=== PATIENT | female | born 2000 | race Caucasian/White ===

== ENCOUNTER 2022-09-06 11:34 | Outpatient (CLI) | payer BC ==
[~2022-09-06] VITALS: Ht 66 cm; Wt 74.9 kg
[2022-09-06 11:50] VITALS: BP 118/64
[2022-09-06 11:59] VITALS: BP 118/64
[2022-09-06 12:14] LABS: BILIRUBIN,URINE NEGATIVE (NEGATIVE); CLARITY,URINE SL CLOUDY; COLOR,URINE YELLOW; GLUCOSE, URINE (UA) NEGATIVE (NEGATIVE); KETONES,URINE 2+ (NEGATIVE); LEUKOCYTE ESTERASE ,URINE NEGATIVE (NEGATIVE); NITRITE,URINE NEGATIVE (NEGATIVE); PROTEIN,URINE TRACE (NEGATIVE)
[2022-09-06 12:21] LABS: BACTERIA,URINE TRACE /HPF
[2022-09-06] MEDS ORDERED: LACTATED RINGERS 1,000 ML IV SCH ×2 (12:30→13:30)
[2022-09-06] MEDS ORDERED: ONDANSETRON 4 MG/2 ML (SDV) Z0FRAN IVP ONE (12:30)
[2022-09-06 13:28] LABS: BASOPHILS % (AUTO) 0 % (0-10); EOSINOPHILS % (AUTO) 0 % (0-10); HEMATOCRIT 34 % (35-52); HEMOGLOBIN 11.7 g/dL (11.5-16.0); LYMPHOCYTES % (AUTO) 7 % (12-44); MEAN CORPUSCULAR HEMOGLOBIN 32 pg (25-34); MEAN CORPUSCULAR HGB CONC 34 g/dL (32-36); MEAN CORPUSCULAR VOLUME 93 fL (80-99); MEAN PLATELET VOLUME 10.4 fL (9.0-12.2); MONOCYTES # (AUTO) 0.5 10^3/uL (0.0-1.0); MONOCYTES % (AUTO) 4 % (0-12); NEUTROPHILS # (AUTO) 12.6 10^3/uL (1.8-7.8); NEUTROPHILS % (AUTO) 89 % (42-75); PLATELET COUNT 244 10^3/uL (130-400); WHITE BLOOD COUNT 14.2 10^3/uL (4.3-11.0)
[2022-09-06 13:36] LABS: ALBUMIN 3.6 GM/DL (3.2-4.5)
[2022-09-06 13:38] LABS: CALCIUM 8.9 MG/DL (8.5-10.1)
[2022-09-06 13:39] LABS: TOTAL PROTEIN 6.8 GM/DL (6.4-8.2)
[2022-09-06 13:40] VITALS: BP 118/68
[2022-09-06 13:41] LABS: BILIRUBIN,TOTAL 0.4 MG/DL (0.1-1.0)
[2022-09-06 13:42] LABS: CREATININE SERUM 0.62 MG/DL (0.60-1.30)
[2022-09-06 13:46] LABS: BAND NEUTROPHILS 1 %; LYMPHOCYTES % (MANUAL) 5 %; MONOCYTES % (MANUAL) 1 %; NEUTROPHILS % (MANUAL) 93 %
[2022-09-06 13:47] LABS: RBC MORPH NORMAL
[2022-09-06 14:35] VITALS: BP 118/68
--- NOTE | 2022-09-07 08:09 | Physician Query-Final Dx ---
JUNG,09/07/22 0809: Clinic Account Progress/Dx Physician Query: Please give diagnosis Please include # weeks gestation Date of Service Sep 06, 2022 at 11:34 ANNETTE ANTUNEZ MD 09/07/22 0825: Clinic Account Progress/Dx DIAGNOSIS: Diagnosis False labor at 35 weeks gestation JUNG,AugSep 07, 2022 08:09 ANNETTE ANTUNEZ MD Sep 07, 2022 08:25
== END 2022-09-06 14:35 | disposition home or self-care (01) ==
LOC: WSo 11:34 → LDRP 11:37 → WSo 14:35
PROVIDERS: ATTEND Obstetrics & Gynecology
DX: O47.03 False labor before 37 completed weeks of gestation, third trimester (principal); Z3A.35 35 weeks gestation of pregnancy
CPT/HCPCS: 36415; 80053; 81000; 85007; 85027; 96361; 96374; 99213